=== PATIENT | female | born 1995 | race Caucasian/White ===

== ENCOUNTER 2021-06-09 19:57 | Emergency (ER) | payer MEDICAID, OTHER ==
[~2021-06-09] VITALS: Ht 160 cm; Wt 57.0 kg
[~2021-06-09 19:57] MED LIST: HYDR-3735 GT
[2021-06-09 20:00] VITALS: BP 117/76
[2021-06-09] MEDS ORDERED: CEPH500C2 PO (21:26)
[2021-06-09] MEDS ORDERED: SULF1TAB48 PO (21:26)
[2021-06-09] MEDS ORDERED: LIDOCAINE HCL/PF 1% 10 MG/ML 5ML VIAL INFIL ONE (21:30)
[2021-06-09] MEDS ORDERED: LIDOCAINE HCL/PF 1% 2ML VIAL INFIL NR (21:45)
== END 2021-06-09 22:54 | disposition home or self-care (01) ==
LOC: ER 19:57
DX: N75.0 Cyst of Bartholin's gland (principal); F41.9 Anxiety disorder, unspecified
CPT/HCPCS: 56420; 99283; A4217; J3490; Z7610